=== PATIENT | female | born 1950 | race Caucasian/White ===

== ENCOUNTER 2022-04-23 12:38 | Outpatient (CLI) | payer MEDICARE | END 2022-04-23 12:39 | disposition home or self-care (01) | LOC: CSHMRI 12:38 | PROVIDERS: ATTEND Nurse Practitioner Family | DX: M54.12 Radiculopathy, cervical region (principal); M47.812 Spondylosis without myelopathy or radiculopathy, cervical region | CPT/HCPCS: 72141 ==